=== PATIENT | male | born 1965 | race Two or more races ===

== ENCOUNTER 2017-12-10 08:53 | Inpatient (IN) | payer BC ==
[~2017-12-10] VITALS: Ht 182.9 cm; Wt 92.3 kg
[2017-12-10] MEDS ORDERED: SODIUM CHLORIDE 0.9% 1,000 ML IVB ONE (09:07)
[2017-12-10] MEDS ORDERED: IOHEXOL 300 MG/ML 100ML BOTTLE IJ ONE (09:10)
[2017-12-10] MEDS ORDERED: NEOMYCIN-BACITRACIN-POLYM UNITDOSE PKG TOP OINT TOP ONE (09:11)
[2017-12-10] MEDS ORDERED: ONDANSETRON HCL 4 MG/2 ML VIAL IV ONE (09:15)
[2017-12-10] MEDS ORDERED: MORPHINE SULFATE 4 MG/ML SYR/VIAL IV ONE (09:15)
[2017-12-10 09:43] LABS: Basophils # (auto) 0 uL; Basophils % (auto) 0.2 % (0.0-2.0); Eosinophils # (auto) 0 uL; Eosinophils % (auto) 0.2 % (0.0-7.0); Hematocrit 43.5 % (41.0-53.0); Hemoglobin 14.7 g/dL (13.5-17.5); Lymphocytes # (auto) 1.1 uL; Lymphocytes % (auto) 5.9 % (10.0-50.0); Mean Corpuscular Hemoglobin 30.5 pg (28.0-32.0); Mean Corpuscular Hgb Conc. 33.8 g/dL (32.0-36.0); Mean Corpuscular Volume 90.3 fL (80.0-100.0); Monocytes % (auto) 5.3 % (0.0-12.0); Neutrophils # (auto) 16.6 uL; Neutrophils % (auto) 88.4 % (37.0-80.0); Platelet Count (auto) 239 10^3/uL (140-450); Red Blood Cells 4.81 10^6/uL (4.5-5.90); Red Cell Distribution Width 13.4 % (11.8-14.3); White Blood Cell 18.8 10^3/uL (4.4-10.8)
[2017-12-10 09:58] LABS: Albumin 3.7 g/dL (3.4-5.0); Amylase 52 U/L (25-115); Anion Gap 9 (5-15); Blood Urea Nitrogen 15 mg/dL (7-18); Calcium 8.1 mg/dL (8.5-10.1); Carbon Dioxide 19 mmol/L (21-32); Chloride 108 mmol/L (98-107); GFR African American 93 mL/min; GFR Non-African American 77 mL/min; Glucose 95 mg/dL (74-106); Lipase 91 U/L (73-393); Potassium 4.1 mmol/L (3.5-5.1); Sodium 136 mmol/L (136-145)
[2017-12-10 10:03] LABS: Alanine Aminotransferase 35 U/L (16-61); Alkaline Phosphatase 99 U/L (45-117); Aspartate Aminotransferase 21 U/L (15-37); Bilirubin, Total 0.9 mg/dL (0.2-1.0); Total Protein 7.2 g/dL (6.4-8.2)
[2017-12-10 10:10] LABS: INR 0.92 (0.9-1.15); Partial Thromboplastin Time 27.1 sec (23.78-33.04); Prothrombin Time 9.9 sec (9.27-12.13)
[2017-12-10] MEDS ORDERED: metroNIDAZOLE 500MG/100ML 100 ML IV ONE (11:30)
[2017-12-10] MEDS ORDERED: PIPERACILLIN-TAZOB 3.375GM 100 ML IV ONE (11:30)
[2017-12-10] MEDS ORDERED: ALBUTEROL SULF 2.5 MG/0.5ML(0.5%) NEB SOLN NEB PRN (11:45)
[2017-12-10] MEDS ORDERED: ACETAMINOPHEN 500 MG TAB PO PRN (11:45)
[2017-12-10] MEDS ORDERED: MORPHINE SULFATE 4 MG/ML SYR/VIAL IV PRN (11:45)
[2017-12-10] MEDS ORDERED: NITROGLYCERIN 0.4 MG SL TAB SL PRN (11:45)
[2017-12-10] MEDS ORDERED: TEMAZEPAM 15 MG CAP PO PRN (11:45)
[2017-12-10] MEDS ORDERED: cefTRIAXone 1GM/10ml IVPUSH 10 ML IV ONE (11:45)
[2017-12-10] MEDS ORDERED: LORazepam 0.5 MG TAB PO PRN (11:45)
[2017-12-10] MEDS: SODIUM CHLORIDE 0.9% 1,000 ML IV SCH ×3 (11:58→23:17)
[2017-12-10] MEDS: metroNIDAZOLE 500MG/100ML 100 ML IV SCH ×3 (11:58→23:17)
[2017-12-10 12:02] VITALS: BP 121/71
[2017-12-10] MEDS: FAMOTIDINE (10MG/ML) 2ML VL IV SCH ×2 (12:05→23:16)
[2017-12-10 12:18] LABS: Urine Bacteria NONE SEEN /hpf (None Seen); Urine Blood 1+ /uL (Negative); Urine WBC 2 /hpf (0 - 3)
[2017-12-10] MEDS: PROMETHAZINE HCL 25 MG/ML 1ML IV PRN (14:33)
[2017-12-10] MEDS: MORPHINE SULFATE 4 MG/ML SYR/VIAL IV PRN ×2 (16:10→23:25)
[2017-12-10 17:00] VITALS: BP_SYST 89; BP_SYST 96; BP_DIAS 52; BP_DIAS 54
[2017-12-10] MEDS ORDERED: DIPH25CA66 PO (18:53)
[2017-12-10] MEDS ORDERED: ALBUAER3 IN (18:53)
[2017-12-10 22:00] VITALS: BP 109/61
[2017-12-11 05:15] VITALS: BP 120/58
[2017-12-11] MEDS: SODIUM CHLORIDE 0.9% 1,000 ML IV SCH ×3 (05:22→21:15)
[2017-12-11] MEDS: metroNIDAZOLE 500MG/100ML 100 ML IV SCH ×3 (05:22→17:26)
[2017-12-11] MEDS: MORPHINE SULFATE 4 MG/ML SYR/VIAL IV PRN ×2 (05:27→11:54)
[2017-12-11 07:01] LABS: Basophils # (auto) 0 uL; Basophils % (auto) 0.2 % (0.0-2.0); Eosinophils # (auto) 0.1 uL; Eosinophils % (auto) 0.7 % (0.0-7.0); Hematocrit 38.6 % (41.0-53.0); Hemoglobin 13.2 g/dL (13.5-17.5); Lymphocytes # (auto) 1.1 uL; Lymphocytes % (auto) 7.2 % (10.0-50.0); Mean Corpuscular Hemoglobin 31.1 pg (28.0-32.0); Mean Corpuscular Hgb Conc. 34.1 g/dL (32.0-36.0); Mean Corpuscular Volume 91.1 fL (80.0-100.0); Monocytes # (auto) 0.7 uL; Monocytes % (auto) 4.6 % (0.0-12.0); Neutrophils # (auto) 12.8 uL; Neutrophils % (auto) 87.3 % (37.0-80.0); Platelet Count (auto) 221 10^3/uL (140-450); Red Blood Cells 4.23 10^6/uL (4.5-5.90); Red Cell Distribution Width 13.3 % (11.8-14.3); White Blood Cell 14.7 10^3/uL (4.4-10.8)
[2017-12-11 08:30] VITALS: BP 101/56
[2017-12-11] MEDS: cefTRIAXone 1GM/10ml IVPUSH 10 ML IV SCH (09:49)
[2017-12-11] MEDS: FAMOTIDINE (10MG/ML) 2ML VL IV SCH ×2 (11:48→23:45)
[2017-12-11 12:02] VITALS: BP 108/65
[2017-12-11 16:28] VITALS: BP 114/64
[2017-12-11] MEDS: PROMETHAZINE HCL 25 MG/ML 1ML IV PRN (19:44)
[2017-12-11] MEDS: HYDROcodone-ACET 5/325MG TAB PO PRN (19:51)
[2017-12-11 22:00] VITALS: BP 133/69
[2017-12-12] MEDS: HYDROcodone-ACET 5/325MG TAB PO PRN ×3 (00:50→19:56)
[2017-12-12] MEDS: SODIUM CHLORIDE 0.9% 1,000 ML IV SCH ×3 (05:15→17:09)
[2017-12-12 05:29] VITALS: BP 102/63
[2017-12-12] MEDS: metroNIDAZOLE 500MG/100ML 100 ML IV SCH ×5 (05:58→23:38)
[2017-12-12 07:44] LABS: Basophils # (auto) 0 uL; Basophils % (auto) 0.3 % (0.0-2.0); Eosinophils # (auto) 0.6 uL; Eosinophils % (auto) 6.4 % (0.0-7.0); Hematocrit 37.7 % (41.0-53.0); Hemoglobin 12.9 g/dL (13.5-17.5); Lymphocytes # (auto) 1.7 uL; Lymphocytes % (auto) 19.5 % (10.0-50.0); Mean Corpuscular Hemoglobin 31.4 pg (28.0-32.0); Mean Corpuscular Hgb Conc. 34.2 g/dL (32.0-36.0); Mean Corpuscular Volume 91.7 fL (80.0-100.0); Monocytes # (auto) 0.6 uL; Monocytes % (auto) 6.7 % (0.0-12.0); Neutrophils # (auto) 5.9 uL; Neutrophils % (auto) 67.1 % (37.0-80.0); Platelet Count (auto) 216 10^3/uL (140-450); Red Blood Cells 4.11 10^6/uL (4.5-5.90); Red Cell Distribution Width 13.4 % (11.8-14.3); White Blood Cell 8.7 10^3/uL (4.4-10.8)
[2017-12-12 07:56] LABS: BUN/Creatinine Ratio 14.1; Calcium 8.1 mg/dL (8.5-10.1); Potassium 4.2 mmol/L (3.5-5.1)
[2017-12-12 08:47] VITALS: BP 113/71
[2017-12-12] MEDS: cefTRIAXone 1GM/10ml IVPUSH 10 ML IV SCH (09:26)
[2017-12-12] MEDS: FAMOTIDINE (10MG/ML) 2ML VL IV SCH ×2 (11:50→23:38)
[2017-12-12 12:32] VITALS: BP 123/76
[2017-12-12 17:07] VITALS: BP 117/72
[2017-12-12] MEDS: PROMETHAZINE HCL 25 MG/ML 1ML IV PRN (21:31)
[2017-12-12 22:00] VITALS: BP 140/71
[2017-12-13] MEDS: SODIUM CHLORIDE 0.9% 1,000 ML IV SCH ×2 (02:20→13:15)
[2017-12-13 05:41] VITALS: BP 132/71
[2017-12-13] MEDS: metroNIDAZOLE 500MG/100ML 100 ML IV SCH ×2 (05:42→12:23)
[2017-12-13 08:50] VITALS: BP 139/74
[2017-12-13] MEDS: cefTRIAXone 1GM/10ml IVPUSH 10 ML IV SCH (09:05)
[2017-12-13] MEDS: FAMOTIDINE (10MG/ML) 2ML VL IV SCH (12:23)
[2017-12-13 12:45] VITALS: BP 146/81
[2017-12-13 13:04] VITALS: BP 146/81
[2017-12-13 13:20] VITALS: BP 144/80
[2017-12-13 14:56] VITALS: BP 124/87
== END 2017-12-13 16:15 | disposition home or self-care (01) | DRG 872 ==
LOC: ER 08:57 → TELE 08:58 → EAST 15:27 → TELE-EAST 22:35
PROVIDERS: ADMIT Internal Medicine; ATTEND Hospitalist
DX: A41.9 Sepsis, unspecified organism (principal); K57.32 Diverticulitis of large intestine without perforation or abscess without bleeding; J45.909 Unspecified asthma, uncomplicated; Z80.41 Family history of malignant neoplasm of ovary; Z82.61 Family history of arthritis; Z91.012 Allergy to eggs
CPT/HCPCS: 36415; 74177; 80048; 80053; 81001; 82150; 83605; 83690; 84484; 85025; 85610; 85730; 87040; 93005; 94640; 96361; 96365; 96367; 96375; J0696; J2405; J2543; J3490

== ENCOUNTER → 2017-12-28 | Outpatient (CLI) | payer BC ==
[~2017-12-28] MED LIST: ALBUAER3 IN; DIPH25CA66 PO
[2017-12-28 16:20] LABS: Urine Blood Negative /uL (Negative); Urine Specific Gravity 1.023 (1.001-1.035)
== END | disposition home or self-care (01) ==
LOC: LAB 14:52
PROVIDERS: ATTEND Internal Medicine Cardiovascular Disease
DX: N39.0 Urinary tract infection, site not specified (principal)
CPT/HCPCS: 81003; 87086

== ENCOUNTER → 2018-04-05 | Outpatient (CLI) | payer BC ==
[2018-04-05 16:05] LABS: Urine Blood Negative /uL (Negative); Urine Specific Gravity 1.009 (1.001-1.035)
== END | disposition home or self-care (01) ==
LOC: LAB 13:10
PROVIDERS: ATTEND Internal Medicine Cardiovascular Disease
DX: N39.0 Urinary tract infection, site not specified (principal)
CPT/HCPCS: 81003; 87086

== ENCOUNTER 2021-06-30 17:02 | Emergency (ER) | payer SELFPAY ==
[~2021-06-30] VITALS: Ht 182.9 cm; Wt 93.4 kg
[2021-06-30] MEDS ORDERED: ASPirin 81 mg TAB PO ONE (17:30)
[2021-06-30 18:45] LABS: Basophils # (auto) 0 10 ^3/uL (0-0.2); Basophils % (auto) 0.5 % (0.0-2.0); Eosinophils # (auto) 0.3 10 ^3/uL (0-0.8); Eosinophils % (auto) 4.6 % (0.0-7.0); Hematocrit 44.1 % (41.0-53.0); Hemoglobin 15.1 g/dL (13.5-17.5); Lymphocytes # (auto) 2.5 10 ^3/uL (0.4-5.4); Lymphocytes % (auto) 33.4 % (10.0-50.0); Mean Corpuscular Hemoglobin 29.9 pg (28.0-32.0); Mean Corpuscular Hgb Conc. 34.2 g/dL (32.0-36.0); Mean Corpuscular Volume 87.4 fL (80.0-100.0); Monocytes # (auto) 0.6 10 ^3/uL (0-1.3); Neutrophils # (auto) 3.9 10 ^3/uL (1.6-8.6); Neutrophils % (auto) 53.5 % (37.0-80.0); Red Blood Cells 5.04 10^6/uL (4.5-5.90); Red Cell Distribution Width 13.4 % (11.8-14.3); White Blood Cell 7.4 10^3/uL (4.4-10.8)
[2021-06-30 19:35] LABS: Albumin 4.1 g/dL (3.4-5.0); Potassium 4.7 mmol/L (3.5-5.1)
[2021-06-30 19:47] LABS: BUN/Creatinine Ratio 18.8; Bilirubin, Total 0.3 mg/dL (0.2-1.0); Total Protein 7.7 g/dL (6.4-8.2)
[2021-06-30 20:33] VITALS: BP 140/84
== END 2021-06-30 20:35 | disposition home or self-care (01) ==
LOC: ER 17:02
DX: R07.89 Other chest pain (principal); J45.909 Unspecified asthma, uncomplicated; Z91.012 Allergy to eggs
CPT/HCPCS: 36415; 71045; 80053; 84484; 85025; 85379; 93005